=== PATIENT | male | born 1950 | race Caucasian/White ===

== ENCOUNTER 2023-11-27 08:36 | Outpatient (CLI) | payer MEDICARE, SELFPAY ==
--- NOTE | 2023-11-27 08:48 | ECG_ITS ---
SEE SCANNED COPY FOR CONFIRMED REPORT MTDD
[2023-11-27 09:10] LABS: Basophils Percent Auto 0.3 % (0.2-1.2); Eosinophils Absolute Auto 0.2 K/mm3 (0-0.3); Eosinophils Percent Auto 2.5 % (0-4.4); Hematocrit 43.6 % (42.0-52.0); Immature Granulocyte Absolute 0.01 K/mm3 (0.00-0.031); Immature Granulocyte Percent A 0.2 % (0-0.5); Lymphocytes Absolute Auto 1.78 K/mm3 (0.9-3.2); Lymphocytes Percent Auto 29.1 % (18.3-44.2); Mean Corpuscular HGB Conc 32.1 g/dl (32-36); Mean Corpuscular Hemoglobin 30.2 pg (26-34); Mean Platelet Volume 10.6 fl (7.4-10.4); Monocytes Absolute Auto 0.5 K/mm3 (0.1-0.6); Monocytes Percent Auto 8.8 % (2.6-8.5); Neutrophils Absolute Auto 3.6 K/mm3 (1.3-6.7); Neutrophils Percent Auto 59.1 % (45.5-73.1); Platelet Count Result 161 k/mm3 (150-375); Red Blood Count 4.64 M/mm3 (4.6-6.20); Red Cell Distribution Width 13.3 % (11.5-14.5); White Blood Count 6.1 K/mm3 (4.5-10.0)
[2023-11-27 09:25] LABS: Anion Gap 7 mmol/L (4-12); Blood Urea Nitrogen 18 mg/dL (9-20); Calcium 9.3 mg/dL (8.4-10.2); Carbon Dioxide 27 mmol/L (22-30); Chloride 108 mmol/L (98-107); Estimated Glomerular Filt Rate 59; Glucose 127 mg/dL (65-110); Potassium 4.7 mmol/L (3.4-5.0); Sodium 142 mmol/L (137-145)
[2023-11-27 09:57] LABS: Partial Thromboplastin Time 28.2 Seconds (22.3-36.8); Prothrombin Time 14.2 Seconds (11.1-14.7)
== END 2023-11-27 08:37 | disposition home or self-care (01) ==
LOC: ANHSURGERY 08:42
PROVIDERS: PCP Family Medicine; Visit Provider Urology
DX: N32.89 Other specified disorders of bladder (principal); I10 Essential (primary) hypertension; Z01.818 Encounter for other preprocedural examination
CPT/HCPCS: 36415; 80048; 85025; 85610; 85730; 87086; 93005

== ENCOUNTER 2023-12-03 00:18 | Day surgery (SDC) | payer MEDICARE, SELFPAY ==
[2023-11-25 10:25] VITALS: BMI 32.8
--- NOTE | 2023-11-25 10:49 | PC.NURSE ---
Report to the Outpatient Waiting Room, entrance under the green pavilion located off [facility], at time __6:30AM on date __12/03/23 . Planned Procedure Time: __8:30AM . Time changes happen often and if your time is changed the preop area will call you the afternoon before. - You and your visitor will be asked to self-screen and do not enter if you have any COVID symptoms. - A mask is optional within the hospital at this time. Patients may have clear liquids (water, carbonated beverages, clear teas, apple juice) until 3 hours prior to surgery with a maximum of 20 ounces. - No food from midnight until time of surgery. Take the following medications with a SIP of water the morning of surgery: ___DOXYCYCLINE DO NOT STOP ANY OF YOUR OTHER PRESCRIPTION MEDICATIONS PRIOR TO SURGERY ?EXCEPT THE FOLLOWING Medications to discontinue per physician ___HOLD PLAVIX AND ASPIRIN PER DR MEI- PT CONFIRMING W/ OFFICE ON HOLD DATE.___ Please no make-up, nail georgian, hairspray, perfume, deodorant, or body powder the day of surgery. No jewelry (including any body piercings) or valuables the day of surgery, leave them at home. Please take a shower or bath the night before, or the morning of, surgery with an antibacterial soap. Wear comfortable, loose fitting clothing. - Jewelry must be removed prior to entering the operating room. Rings and piercings that are not removed may be cut off. - The hospital will not accept responsibility for valuables. - Please leave all valuables, including medications, at home the day of surgery. If you are going home after surgery, a licensed bus van driver must drive you home. - NO public transportation without another adult if you receive anesthesia. - We recommend that an adult stay with you for 24 hours following discharge. - We also recommend that you do not drive, make important decision, drink alcoholic beverages, or take any drugs that were not prescribed by your health care provider for at least 24 hours after your discharge time. Follow any additional instructions given to you from your surgeon. If you or anyone in your household have experienced Covid symptoms in the past week, please notify your surgeon or the nurse liaison at the phone number below for possible testing. Telephone instructions given to ___PATIENT and asked if any additional questions and then verbalized understanding. Patient advised to call surgeon office or pre surgery nurse liaison [phone] if any additional questions.
[2023-12-03] VITALS (7 sets, daily range): BP systolic 124–147; BP diastolic 64–77; PULSE 75–81; RESP 12–18; TEMP 36.3–36.6; O2SAT 96–100
--- NOTE | 2023-12-03 07:57 | WPDHPUPDATE1 ---
History and Physical Update Update Date/Time: 12/03/23 07:57 History and Physical has been reviewed, including an updated exam of the patient. There are NO changes in the patient's condition. Risks, benefits, and alternatives have been discussed and questions answered. Patient agrees to proceed with procedure. Proceed with transurethral resection of bladder tumor
--- NOTE | 2023-12-03 09:04 | P.PNAN_ITS ---
Anes - Initial Pre Proc Eval Procedure: Operation Date: 12/03/23 09:15 Proposed Procedures p Trans Urethral Resection Bladder Tumor - Rogelio Gonzalez MD Date/Time: 12/03/23 09:04 Surgeon: Rogelio Gonzalez MD Pre Op Diagnosis: bladder mass, hematuria Patient Data Age: 73 Gender: M Height: 1.73 m Weight: 97.5 kg Last Vital Signs Temp 97.3 F L 12/03/23 07:09 Pulse 79 12/03/23 07:09 Resp 18 12/03/23 07:09 BP 128/75 12/03/23 07:09 Pulse Ox 99 12/03/23 07:09 O2 Del Method Room Air 12/03/23 07:09 Allergies Allergy/AdvReac Type Severity Reaction Status Date / Time penicillin G Allergy Rash Verified 12/03/23 07:15 Home Medications Medication Instructions Recorded Confirmed Type aspirin 81 mg tablet,delayed 81 mg PO DAILY 11/25/23 12/03/23 History release (Adult Aspirin Regimen) atorvastatin 40 mg tablet 40 mg PO HS 11/25/23 12/03/23 History cetirizine 10 mg capsule (Zyrtec) 10 mg PO DAILY 11/25/23 12/03/23 History clopidogrel 75 mg tablet 75 mg PO DAILY 11/25/23 12/03/23 History diclofenac sodium 1 % topical gel 1 inch topical BID PRN Pain 11/25/23 12/03/23 History doxycycline hyclate 50 mg capsule 50 mg PO BID 11/25/23 12/03/23 History fluticasone propionate 50 1 spray intranasal DAILY PRN 11/25/23 12/03/23 History mcg/actuation nasal Congestion spray,suspension isosorbide mononitrate 30 mg 30 mg PO QAM 11/25/23 12/03/23 History tablet,extended release 24 hr metoprolol succinate 25 mg 25 mg PO HS 11/25/23 12/03/23 History tablet,extended release 24 hr nitroglycerin 0.4 mg sublingual 0.4 mg sublingual Q5-10M PRN Chest 11/25/23 12/03/23 History tablet Pain olopatadine 0.2 % eye drops 1 drp EACH EYE DAILY PRN Itching 11/25/23 12/03/23 History Patient hx anesthesia problems: none Family hx anesthesia problems: none Results Review: All pre-operative results and documents have been reviewed as part of the pre- operative evaluation. [facility] Social History Social History Smoking packs per day: 0.5 Smoking cigarettes per day: 10.0 Years smoked: 45 Smoking pack-years: 22.50 Smoking status: Former smoker Tobacco type: cigarettes Smoking end date: 01/13/12 Alcohol intake: current Drinks per week: 1 Living arrangements: with family Additional living arrangements comments: Spiritual care concerns: No Anes - Eval Final PreProcedure Day of Procedure 12/03/23 09:04 Patient weight: obese Heart: regular rate and rhythm Lungs: clear to auscultation Airway: Mallampati scale and special considerations (Missing teeth in lower aspect. ) Neurological: alert and oriented Last oral intake: >/= 8 hours ASA classification: III Emergent: no Anesthetic plan: proceed Anesthesia type and monitoring: general LMA and standard monitoring Results Review: All pre-operative results and documents have been reviewed as part of the pre- operative evaluation. Informed Consent: The patient's anesthetic plan and its attendant risks and benefits were discussed with the patient/family/POA. Questions were solicited and answers provided to the satisfaction of the patient/family/
[2023-12-03] MEDS: ceFAZolin 2 GM/D5W 50 ML 2 GM/50 ML BAG IVPB (09:13)
[2023-12-03] MEDS: LIDOCAINE HCL 2% GEL UROJET 10 ML PKG MUCOUS MEM (09:32)
--- NOTE | 2023-12-03 09:41 | P.OP_ITS ---
Procedure Note - Detailed Date of Procedure 12/03/23 Pre-op Diagnosis bladder mass, hematuria Post-op Diagnosis Same Procedure Performed Urethral dilation, transurethral resection of bladder tumor medium 3 cm, complex Eid catheter placement Surgeon Rogelio Gonzalez MD Anesthesia General Description of Procedure Patient is taken to the operative suite correctly identified. Once anesthesia was obtained was placed in dorsal lithotomy position and prepped and draped usual sterile fashion. The meatus would not allow placement of a 24 [place] resectoscope sheath. Urethra was then dilated up to 28 [place]. Twenty-four [place] resectoscope sheath was inserted the bladder. Bladder was inspected in its entirety. He has a flat tumor encompassing approximately 3 cm area. This was resected and sent to pathology. The base was fulgurated. There appeared to be good hemostasis at termination of procedure. 2% viscous lidocaine was inserted into the urethra. Patient does have an enlarged prostate with a median lobe. The bladder neck area was oozing slightly enough fulgurated that area. [address] was then placed with 10 cc in the balloon. This was connected to continuous bladder irrigation. He is taken recovery stable condition. The CBI will be weaned off to be discharged home with Eid catheter. That will be removed in 2 days. He will call for path results in 1 week. This completes dictation. Please send a copy of op note to my office. Estimated Blood Loss 0 Drains Yes Packing No Pathology Yes Complications No immediate complications Condition Stable Disposition PACU
[2023-12-03] MEDS: LACTATED RINGERS 1,000 ML 30 ML IV CONT (09:45)
[2023-12-03] MEDS: fentaNYL CITRATE INJ (*CRX) 100 MCG/2 ML VIAL 25 MCG IV PUSH ×2 (09:57→10:20)
== END 2023-12-03 11:26 | disposition home or self-care (01) ==
PROVIDERS: PCP Family Medicine; Visit Provider Urology
PROC: 0TBB8ZZ Excision of Bladder, Via Natural or Artificial Opening Endoscopic (ICD-10-PCS; CPT 52235; principal; 2023-12-03 09:15)
DX: C67.9 Malignant neoplasm of bladder, unspecified (principal); N40.0 Benign prostatic hyperplasia without lower urinary tract symptoms; Z79.02 Long term (current) use of antithrombotics/antiplatelets; Z79.82 Long term (current) use of aspirin; E66.9 Obesity, unspecified; Z68.32 Body mass index [BMI] 32.0-32.9, adult
CPT/HCPCS: 52235; 36415; 80048; 85025; 85610; 85730; 87086; 88305; 88342; 93005; J0690; J1100; J2405; J2704; J3010; J7120